=== PATIENT | female | born 1985 | race Two or more races ===

== ENCOUNTER 2024-07-03 00:03 | Emergency (ER) | payer MEDICAID, SELFPAY ==
[2024-07-03 00:04] VITALS: BMI 35.4
[2024-07-03 00:22] VITALS: BP 134/82; PULSE 88; RESP 18; TEMP 36.9; O2SAT 99
--- NOTE | 2024-07-03 00:38 | XR_ITS ---
Examination: CT abdomen and pelvis without contrast. Coronal 3-D reconstructions. Sagittal 2-D reconstructions. Date and time of exam:July 03, 2024 0220 hrs. Indications: Onset right-sided abdominal and flank pain beginning 4 days ago, worse today, diagnosis cholelithiasis 4 years ago CTDI: vol (mGy): 11.8 DLP: (mGycm): 700 Technique: Axial images of the abdomen have been obtained, 3 mm slice thickness Intravenous contrast material has not been administered. Low dose protocols were performed. One or more of the following dose reduction techniques were used; automated exposure control, adjustment of the mA and/or KV according to patient size, use of iterative reconstruction technique. Findings: Diffuse fatty infiltration throughout the liver Spleen is not enlarged Cholelithiasis Suspicious for mild thickening of the gallbladder wall No pancreatic mass or peripancreatic edema Normal adrenal glands No renal or ureteral calculi, no hydronephrosis 10 mm fat-containing umbilical hernia Aorta normal size Normal appendix No bowel obstruction No diverticulitis No uterine or adnexal mass Contracted urinary bladder The osseous structures are intact with mild to moderate narrowing hip joints Impression: Cholelithiasis Recommend gallbladder sonography follow-up to exclude early cholecystitis
--- NOTE | 2024-07-03 00:39 | PD.EDABDPN ---
ED Abdominal Pain RME/HPI General Chief Complaint: Abdominal Pain Stated complaint: RIGHT SIDE ABD PAIN Time seen by provider: 07/03/24 00:13 Arrival date/time: 07/03/24 00:03 Source: patient, RN notes reviewed and old records reviewed Mode of arrival: ambulatory Limitations: no limitations RME / HPI RME / HPI narrative: 39yof presents to ED for right flank pain x4 days now radiating to RLQ. No fever, nausea/vomiting or urinary symptoms reported. No medications or treatment since symptom onset. Related Data Previous Rx's ?Medication ?Instructions ?Recorded acetaminophen 500 mg tablet 1,000 mg (2 x 500 mg) PO Q6H PRN 07/03/24 (Tylenol Extra Strength) pain #30 tabs ibuprofen 600 mg tablet 600 mg PO Q6H PRN pain #30 tabs 07/03/24 Allergies Allergy/AdvReac Type Severity Reaction Status Date / Time No Known Allergies Allergy Verified 08/03/18 11:33 Review of Systems Review of Systems Systems Reviewed: All systems reviewed, normal except as documented Constitutional Constitutional: Denies chills and Denies fever(s) Gastrointestinal Gastrointestinal: Reports abdominal pain, Denies loose stools, Denies nausea and Denies vomiting Genitourinary Genitourinary: Denies dysuria, Reports flank pain and Denies hematuria Past Medical History Past Medical History GASTROINTESTINAL: Positive Gall Bladder Disease and Obesity Surgical History OTHER SURGICAL HX: Denies past surgical history Social History SMOKING STATUS: Never smoker SUBSTANCE USE: does not use ALCOHOL: Never ED Exam General Limitations: Present no limitations General appearance: Present alert and in no apparent distress Head Head exam: Present atraumatic and normocephalic Eye Eye exam: Present normal appearance, PERRL and EOMI ENT ENT exam: Present normal exam and mucous membranes moist Neck Neck exam: Present normal inspection and full ROM Chest Chest inspection: Present normal inspection and symmetric chest wall rise Respiratory Respiratory exam: Present normal lung sounds bilaterally; Absent respiratory distress Cardiovascular Cardiovascular exam: Present regular rate and normal rhythm Abdominal Exam Abdominal exam: Present soft; Absent distention, tenderness, guarding or rebound Extremities Exam Extremities exam: Present normal inspection and full ROM Back Exam Back exam: Absent CVA tenderness (R) or CVA tenderness (L) Neurological Exam Neurological exam: Present alert and oriented X3 Psychiatric Psychiatric exam: Present normal affect and normal mood Skin Skin exam: Present warm, dry, intact and normal color Course Quality Measures none Orders Category Date Time Status CT abdomen pelvis wo con Stat Exams 07/03/24 00:38 Completed HCG Qualitative,Urine Stat Lab 07/03/24 01:06 Completed UA [Urinalysis] Stat Lab 07/03/24 01:06 Completed Acetaminophen Tab [Tylenol ES Tab] Med 07/03/24 00:38 Discontinued 1,000 mg PO X1 ONE Vital Signs Vital signs: Vital Signs Temperature 98.5 F 07/03/24 00:22 Pulse Rate 88 07/03/24 00:22 Respiratory Rate 18 07/03/24 00:22 Blood Pressure 134/82 H 07/03/24 00:22 Pulse Oximetry (%) 99 07/03/24 00:22 Oxygen Delivery Method Room Air 07/03/24 00:22 Abdominal Pain MDM MDM Narrative MDM Narrative:: 39yof presents to ED for right flank pain x4 days now radiating to RLQ. No fever, nausea/vomiting or urinary symptoms reported. No medications or treatment since symptom onset. Patient updated on labs and imaging. +cholelithiasis, patient has known history of gallstones x 4 years. No evidence of UTI, kidney stone or appendicitis. Patient is well-appearing, afebrile, vitals are stable. Encouraged close outpatient follow-up with general surgery. Recommended adequate fluids, symptomatic treatment prn. Stable for discharge, RTED precautions given. Patient data External records reviewed:: [facility] previous records (08/03/2018 urgent care visit for right otitis externa) Clinical information provided by:: patient Social determinants that could affect healthcare access:: none Patient has the following chronic illnesses:: Obesity, GB disease How is presenting disease/condition affected by chronic disease/condition?: exacerbated by Evaluation data The following diagnostics were reviewed and interpreted by me:: lab results and radiology exam(s) Lab and/or radiology exams considered but not ordered:: cbc, cmp Interpretation Summary: CT abd/pelvis: Impression: Cholelithiasi Recommend gallbladder sonography follow-up to exclude early cholecystitis Dictated By: Mikhail Varma MD Medications / Prescriptions Medications or Prescriptions considered but not ordered:: No antibiotics recommended at this time Medication administrations:: Medication Administration History Discontinued Medications Acetaminophen (Acetaminophen 500 Mg Tablet) 1,000 mg PO X1 ONE Stop: 07/03/24 00:39 Last Admin: 07/03/24 01:25 Dose: 1,000 mg Documented By: CVL Above medication administered in ED Consultations Consultation(s) initiated? (list below): No Diagnosis Differential diagnosis abdominal pain: other (Generalized abdominal pain, cholelithiasis, cholecystitis, appendicitis, UTI, pyelonephritis, kidney stone) Most likely diagnosis given after review of the tests above:: Cholelithiasis Admission Indicated Admission indicated?: not indicated Admission Request Was there a request for admission?: No Disposition Plan Disposition Plan: Discharge Discharge Attestation Discharge Attestation: The patient and all family members were given an opportunity to ask questions and understood the discharge instructions. Discharge instructions specifically effects, indications for sooner follow up or return to the emergency department, and the expected course of current diagnosis. Patient condition: Stable Discharge Plan Plan Patient Disposition: HOME (Self Care) Patient condition on transfer: Stable Prescriptions/Referrals Prescriptions/Med Rec: New ibuprofen 600 mg tablet 600 mg PO Q6H PRN (Reason: pain) Qty: 30 0RF acetaminophen [Tylenol Extra Strength] 500 mg tablet 1,000 mg PO Q6H PRN (Reason: pain) Qty: 30 0RF Referrals: Itzel Topete MD [Physician] - None (Call to schedule an appointment as needed, if symptoms worsen.) Gilbert Lawson PA-C [Primary Care Provider] - In 1 week Problem List Clinical Impression: Cholelithiasis Patient/Caregiver Discharge Instructions Education Materials: Treating Gallstones Print Language: Chinese Stand Alone Forms: Juhi Award Info., Patient Portal Info Letter ESTELLE/PRICILA Supervising Physician PA/PRICILA Supervising Physician: Eric
[2024-07-03] MEDS: ACETAMINOPHEN 500 MG TABLET 1000 MG PO (01:25)
[2024-07-03 01:36] LABS: Collection Type, Urine Clean Catch
[2024-07-03 01:44] LABS: Bilirubin,Urine Negative (Negative); Blood,Urine 1+ (Negative); Clarity,Urine Turbid (Clear/Hazy); Color,Urine Lt-Yellow (Lt Yel-Yel); Glucose, Urine Negative (Negative); Ketones,Urine Negative (Negative); Leukocyte Esterase,Urine Positive (Negative); Nitrite,Urine Negative (Negative); Protein,Urine Negative (Neg - Trace); RBC,Urine 4 /hpf (0-3); Specific Gravity,Urine 1.022 (1.001-1.035); Squamous Epithelial Cell,Urine 12 /hpf (0-5); Urobilinogen,Urine Negative mg/dL (0.0-1.0); WBC,Urine 4 /hpf (0-5)
[2024-07-03 01:58] LABS: HCG Qualitative,Urine Negative
--- NOTE | 2024-07-03 03:28 | PRELIM_ITS ---
CT scan of the abdomen and pelvis without intravenous contrast (axial sections with sagittal and deisi nal reformats). July 03, 2024 at 0229 hoursClinical History: Right flank pain.Comparison: No prior study is available for comparison. Findings:The lung bases are clear.The liver, pancreas, spleen, ki dneys and adrenals are unremarkable on this noncontrast study. There is a rim calcified gallbladder c alculus, measuring 39 mm without evidence of gallbladder wall thickening or pericholecystic fluid. Th e stomach is distended with food residue. No evidence of bowel obstruction. The appendix is within no rmal limits (axial images [id number]). There is no mesenteric or retroperitoneal adenopathy.The urin cherise bladder is incompletely distended at the time of the examination. There is no free fluid or free air. The uterus and adnexa are unremarkable. The osseous structures are unremarkable.A small fat-cont aining umbilical hernia is present. Impression:Cholelithiasis without evidence of acute cholecystitis . Recommend further evaluation with sonography, if clinically indicated. Other findings as described above. Report Electronically Signed By: Miles Flores 07/03/2024 3:27:42 AM [EST]
[2024-07-03 03:58] VITALS: RESP 18
== END 2024-07-03 04:03 | disposition home or self-care (01) ==
PROVIDERS: Physician Assistant; Emergency Provider Emergency Medicine; PCP Physician Assistant
DX: K80.20 Calculus of gallbladder without cholecystitis without obstruction (principal)
CPT/HCPCS: 74176; 81001; 81025; 99284; A9270

== ENCOUNTER 2024-12-05 22:42 | Emergency (ER) | payer MEDICAID, SELFPAY ==
[2024-12-05 22:44] VITALS: BMI 35.9
[2024-12-05 22:57] VITALS: BP 138/89; PULSE 74; RESP 18; TEMP 36.9; O2SAT 98
--- NOTE | 2024-12-05 23:17 | PD.EDABDPN ---
ED Abdominal Pain RME/HPI General Chief Complaint: Abdominal Pain Stated complaint: ABD PAIN SINCE 0400 WITH VOMITING Time seen by provider: 12/05/24 23:11 Arrival date/time: 12/05/24 22:42 39F with no significant PMH presents to ED with 1 day of burning epigastric pain and N/V. Patient was told she has gastritis and took some TUMs w/o relief. Limitations: no limitations Related Data Previous Rx's ?Medication ?Instructions ?Recorded acetaminophen 500 mg tablet 1,000 mg (2 x 500 mg) PO Q6H PRN 07/03/24 (Tylenol Extra Strength) pain #30 tabs ibuprofen 600 mg tablet 600 mg PO Q6H PRN pain #30 tabs 07/03/24 Allergies Allergy/AdvReac Type Severity Reaction Status Date / Time blue dye Allergy Gastrointestinal Verified 12/05/24 22:44 Upset pineapple Allergy Verified 12/05/24 22:44 red dye Allergy Gastrointestinal Verified 12/05/24 22:44 Upset Review of Systems Review of Systems Systems Reviewed: All systems reviewed, normal except as documented Constitutional Constitutional: Reports system reviewed and no additional complaints, except as documented, Denies fever(s) and Denies headache(s) ENT Ears, Nose, Mouth, and Throat: Denies disequilibrium and Denies headache(s) Cardiovascular Cardiovascular: Reports system reviewed and no additional complaints, except as documented, Denies chest pain and Denies dyspnea Respiratory Respiratory: Reports system reviewed and no additional complaints, except as documented, Denies cough and Denies dyspnea Gastrointestinal Gastrointestinal: Reports system reviewed and no additional complaints, except as documented, Reports as per HPI, Reports abdominal pain, Reports nausea and Reports vomiting Neurologic Neurologic: Reports system reviewed and no additional complaints, except as documented, Denies confusion, Denies disequilibrium and Denies headache(s) Psychiatric Psychiatric: Denies confusion Past Medical History Past Medical History GASTROINTESTINAL: Positive Gall Bladder Disease and Obesity Social History SMOKING STATUS: Never smoker SUBSTANCE USE: does not use ED Exam General Limitations: Present no limitations General appearance: Present alert, in no apparent distress and anxious Head Head exam: Present atraumatic Eye Eye exam: Present normal appearance, PERRL and EOMI ENT ENT exam: Present normal exam, normal oropharynx and mucous membranes moist Neck Neck exam: Present normal inspection, full ROM and trachea midline Chest Chest inspection: Present normal inspection and symmetric chest wall rise Respiratory Respiratory exam: Present normal lung sounds bilaterally Cardiovascular Cardiovascular exam: Present regular rate, normal rhythm and normal heart sounds Abdominal Exam Abdominal exam: Present soft and normal bowel sounds Extremities Exam Extremities exam: Present normal inspection and full ROM Back Exam Back exam: Present normal inspection and full ROM Neurological Exam Neurological exam: Present alert, oriented X3 and CN II-XII intact Psychiatric Psychiatric exam: Present normal affect and normal mood Skin Skin exam: Present warm, dry, intact and normal color Course Quality Measures none Orders Category Date Time Status Famotidine [Pepcid] Med 12/05/24 23:11 Discontinued 40 mg PO X1 ONE Lidocaine 2% Viscous [Xylocaine 2% Viscous] Med 12/05/24 23:11 Discontinued 15 ml PO X1 ONE Ondansetron Odt [Zofran Odt] Med 12/05/24 23:11 Discontinued 4 mg PO X1 ONE Vital Signs Vital signs: Vital Signs Temperature 98.4 F 12/05/24 22:57 Pulse Rate 74 12/05/24 22:57 Respiratory Rate 18 12/05/24 22:57 Blood Pressure 138/89 H 12/05/24 22:57 Pulse Oximetry (%) 98 12/05/24 22:57 Oxygen Delivery Method Room Air 12/05/24 22:57 O2 at 98% on RA and WNLs Abdominal Pain MDM MDM Narrative MDM Narrative:: 39F with no significant PMH presents to ED with 1 day of burning epigastric pain and N/V. Patient was told she has gastritis and took some TUMs w/o relief. Physical exam reveals no gross ab tenderness. Patient is afebrile, alert, but anxious. Patient did not want to see if GI cocktail improved symptoms. Patient data [facility] records reviewed:: [facility] Clinical information provided by:: patient Social determinants that could affect healthcare access:: none Patient has the following chronic illnesses:: none How is presenting disease/condition affected by chronic disease/condition?: no chronic disease Evaluation data The following diagnostics were reviewed and interpreted by me:: other (specify) (none) Lab and/or radiology exams considered but not ordered:: not ordered Interpretation Summary: n/a Medications / Prescriptions Medications or Prescriptions considered but not ordered:: ordered Medication administrations:: Medication Administration History Discontinued Medications Famotidine (Famotidine 20 Mg Tablet) 40 mg PO X1 ONE Stop: 12/05/24 23:12 Last Admin: 12/06/24 00:00 Dose: 40 mg Documented By: MICHAEL Lidocaine HCl (Lidocaine Viscous 2% 15 Ml Udc) 15 ml PO X1 ONE Stop: 12/05/24 23:12 Last Admin: 12/06/24 00:00 Dose: 15 ml Documented By: MICHAEL Ondansetron HCl (Ondansetron Odt 4 Mg Tabrap) 4 mg PO X1 ONE; Protocol Stop: 12/05/24 23:12 Last Admin: 12/06/24 00:00 Dose: 4 mg Documented By: MICHAEL above Consultations Consultation(s) initiated? (list below): No Diagnosis Differential diagnosis abdominal pain: abdominal pain, acute appendicitis, calculus of kidney, constipation, diverticulitis, endometriosis, gastroenteritis, pancreatitis, small bowel obstruction and other (gastritis) Most likely diagnosis given after review of the tests above:: gastritis Admission Indicated Admission indicated?: not indicated Admission Request Was there a request for admission?: No Disposition Plan Disposition Plan: Discharge Discharge Attestation Discharge Attestation: The patient and all family members were given an opportunity to ask questions and understood the discharge instructions. Discharge instructions specifically effects, indications for sooner follow up or return to the emergency department, and the expected course of current diagnosis. Patient condition: Stable Discharge Plan Plan Patient Disposition: HOME (Self Care) Discharge Disposition comment: Stable Prescriptions/Referrals Prescriptions/Med Rec: No Action ibuprofen 600 mg tablet 600 mg PO Q6H PRN (Reason: pain) Qty: 30 0RF acetaminophen [Tylenol Extra Strength] 500 mg tablet 1,000 mg PO Q6H PRN (Reason: pain) Qty: 30 0RF Referrals: Gilbert Lawson PA-C [Primary Care Provider] - In 1 week Problem List Clinical Impression: Gastritis Patient/Caregiver Discharge Instructions Education Materials: ED Gastritis (Adult), ED PEPTIC ULCER vs GASTRITIS Additional Instructions: Please follow-up with PCP within 24-48 hours and return immediately if symptoms worsen. Can ask PCP for referral to GI for additional evaluation/work-up. Print Language: Salvadorean Stand Alone Forms: Patient Portal Info Letter ESTELLE/PRICILA Supervising Physician SETELLE/PRICILA Supervising Physician: Dr. Gutierrez
[2024-12-06] MEDS: FAMOTIDINE 20 MG TABLET 40 MG PO
[2024-12-06] MEDS: ONDANSETRON ODT 4 MG TABRAP PO
[2024-12-06] MEDS: LIDOCAINE VISCOUS 2% 15 ML UDC PO
== END 2024-12-06 00:04 | disposition home or self-care (01) ==
PROVIDERS: Emergency Provider Emergency Medicine; PCP Physician Assistant
DX: K29.70 Gastritis, unspecified, without bleeding (principal)
CPT/HCPCS: 99282; J3490; Q0162; A9270

== ENCOUNTER 2025-01-09 06:34 | Emergency (ER) | payer MEDICAID, SELFPAY ==
[2025-01-09 06:39] VITALS: BP 142/78; PULSE 70; RESP 18; TEMP 36.7; O2SAT 98; BMI 34.3
--- NOTE | 2025-01-09 07:14 | EDNOTE_ITS ---
ED Ear RME/HPI General Chief complaint: Ear Stated complaint: R EAR STUD EARRING FEELS INFECTED AND STUCK Time Seen by Provider: 01/09/25 06:41 Source: patient Arrival date/time: 01/09/25 06:34 This is a 39-year-old female who presents to the emergency department with complaints of a possible infected piercing to her right upper earlobe. Patient reports she had a new piercing placed 1 week ago she was attempting to clean or remove due to erythema and possible infection when she accidentally embedded the top of her piercing into her ear. Patient reports she is unable to remove. Mode of arrival: ambulatory Limitations: no limitations Related Data Previous Rx's ?Medication ?Instructions ?Recorded acetaminophen 500 mg tablet 1,000 mg (2 x 500 mg) PO Q 6H PRN 07/03/24 (Tylenol Extra Strength) pain #30 tabs ibuprofen 600 mg tablet 600 mg PO Q6H PRN pain #30 t abs 07/03/24 mupirocin 2 % topical ointment 1 applic topical BID 7 days #22 01/09/25 grams Allergies Allergy/AdvReac Type Severity Reaction Status Date / Time blue dye Allergy Gastrointestinal Verified 01/09/25 06:42 Upset pineapple Allergy Verified 01/09/25 06:42 red dye Allergy Gastrointestinal Verified 01/09/25 06:42 Upset Review of Systems Review of Systems Systems Reviewed: All systems reviewed, normal except as documented Narrative Review of Systems: Gen: No fever, no chills, no weight loss EYES: No discharge, no visual changes, no pain HEENT: + Ear lobe r pain, no congestion, no sore throat PULM: No shortness of breath, no cough, no congestion CV: No chest pain, no dyspnea on exertion, no palpitations GI: No nausea, no vomiting, no diarrhea, no pain, no constipation : No frequency, no urgency, no dysuria Musc/skel: No joint pain, no back pain Skin: No rash Psyc: No hallucinations, no depression Heme/Lymph: No easy bleeding or bruising tendencies Neuro: No weakness, no headache ED Exam General Limitations: Present no limitations General appearance: Present alert and in no apparent distress Head Head exam: Present atraumatic Eye Eye exam: Present normal appearance, PERRL and EOMI ENT ENT exam: Present normal exam, normal oropharynx and mucous membranes moist Expanded ENT Exam External ear exam: Present pain with movement and external tenderness Ear images: 2 1. + Embedded piercing to scapha Smithers and outer upper lobe redness cellulitis pattern. Neck Neck exam: Present normal inspection, full ROM and trachea midline Chest Chest inspection: Present normal inspection and symmetric chest wall rise Respiratory Respiratory exam: Present normal lung sounds bilaterally Cardiovascular Cardiovascular exam: Present regular rate, normal rhythm and normal heart sounds Abdominal Exam Abdominal exam: Present soft and normal bowel sounds Extremities Exam Extremities exam: Present normal inspection and full ROM Back Exam Back exam: Present normal inspection and full ROM Neurological Exam Neurological exam: Present alert, oriented X3 and CN II-XII intact Psychiatric Psychiatric exam: Present normal affect and normal mood Skin Skin exam: Present warm, dry, intact and normal color Course Quality Measures none Orders Category Date Time Status Wound Care NOW Care 01/09/25 07:05 Completed Lidocaine 1% 20 ml [Xylocaine 1% 20 ML] Med 01/09/25 07:05 Discontinued 5 ml INFL X1 ONE Vital Signs Vital signs: Vital Signs Temperature 98.0 F 01/09/25 06:39 Pulse Rate 70 01/09/25 06:39 Respiratory Rate 18 01/09/25 06:39 Blood Pressure 142/78 H 01/09/25 06:39 Pulse Oximetry (%) 98 01/09/25 06:39 Oxygen Delivery Method Room Air 01/09/25 06:39 PROCEDURES: Nerve Block Nerve Block 1: Time out performed: Yes Local Anesthetic: lidocaine 1% Amount of anesthesia used (mL): 6 Side: left Nerve Blocks: other (auriculartemporal nerve block) Procedure Successful: Yes Patient Tolerated Procedure: well Complications: none Ear MDM Narrative MDM Narrative:: After nerve block I was able to push hearing forward and undo the back of the earring removing the embedded metal ring from her helix area. Tolerated procedure well Patient's ear cleansed with Betadine and saline. Neosporin - Advised patient to continue Bactrim that was ordered by her PCP - Start mupirocin as directed Return to the emergency department with any worsening symptoms or change in condition. Patient data External records reviewed:: [facility] previous records Clinical information provided by:: patient Social determinants that could affect healthcare access:: none Patient has the following chronic illnesses:: None How is presenting disease/condition affected by chronic disease/condition?: no chronic disease Evaluation data The following diagnostics were reviewed and interpreted by me:: other (specify) Lab and/or radiology exams considered but not ordered:: None Interpretation Summary: Not applicable Medications / Prescriptions Medications or Prescriptions considered but not ordered:: Narcotic Medication administrations:: Medication Administration History Discontinued Medications Lidocaine HCl (Lidocaine Hcl 1% 20 Ml Vial) 5 ml INFL X1 ONE Stop: 01/09/25 07:06 Last Admin: 01/09/25 08:29 Dose: 5 ml Documented By: DB All medications administered and effective Consultations Consultation(s) initiated? (list below): No Diagnosis Ear Differential Diagnosis: otitis externa, otitis media, foreign body in ear and other (ear cellulitis) Most likely diagnosis given after review of the tests above:: Ear helix cellulitis, foreign body removal Admission Indicated Admission indicated?: not indicated Admission Request Was there a request for admission?: No Disposition Plan Disposition Plan: Discharge Discharge Attestation Discharge Attestation: The patient and all family members were given an opportunity to ask questions and understood the discharge instructions. Discharge instructions specifically effects, indications for sooner follow up or return to the emergency department, and the expected course of current diagnosis. Patient condition: Stable Discharge Plan Plan Patient Disposition: HOME (Self Care) Patient condition on transfer: Stable Prescriptions/Referrals Prescriptions/Med Rec: New mupirocin 2 % ointment 1 applic topical BID 7 Days Qty: 22 0RF No Action ibuprofen 600 mg tablet 600 mg PO Q6H PRN (Reason: pain) Qty: 30 0RF acetaminophen [Tylenol Extra Strength] 500 mg tablet 1,000 mg PO Q6H PRN (Reason: pain) Qty: 30 0RF Referrals: Gilbert Lawson PA-C [Primary Care Provider] - In 1 week Problem List Clinical Impression: Cellulitis of auricle of ear, Foreign body of ear, right Patient/Caregiver Discharge Instructions Discharge Activity: activity as tolerated Education Materials: ED Cellulitis, ED Pierced Ear Infection Additional Instructions: Please continue your Bactrim that was prescribed by your primary doctor. Please use the ointment as directed. Keep area clean and dry. Follow-up with your primary doctor as directed. Print Language: Bahraini Stand Alone Forms: Juhi Award Info., Patient Portal Info Letter ESTELLE/PRICILA Supervising Physician ESTELLE/PRICILA Supervising Physician: Dr nunez
[2025-01-09] MEDS: LIDOCAINE HCL 1% 20 ML VIAL 5 ML INFL (08:29)
== END 2025-01-09 08:34 | disposition home or self-care (01) ==
PROVIDERS: Emergency Provider Family Medicine; PCP Physician Assistant
DX: T16.1XXA Foreign body in right ear, initial encounter (principal); H60.11 Cellulitis of right external ear; W44.9XXA Unspecified foreign body entering into or through a natural orifice, initial encounter
CPT/HCPCS: 64400; 99283; J3490